=== PATIENT | female | born 1960 | race Two or more races ===

== ENCOUNTER 2016-11-19 15:52 | Emergency (ER) | payer SELFPAY ==
[~2016-11-19] VITALS: Ht 167.6 cm; Wt 97.5 kg
[2016-11-19] MEDS ORDERED: IBUPROFEN600 MG ORAL (17:39)
[2016-11-19 18:00] VITALS: BP 142/83
--- NOTE | 2016-11-19 18:50 | Emergency Room Report ---
History of Present Illness General Chief Complaint: Lower Extremity Injury Source: Patient (FRANNY GARCIA) Present Illness HPI The patient is a 56-year-old female presenting for left knee pain which began yesterday. She states that this began while she was standing for no known reason. She denies any fall or injury. She states that pain was an 8/10 dull ache to the back of the knee and is worse with movement. She denies any radiating pain. She denies any numbness or tingling. She has used Aleve at home which helps. She denies any other symptoms. She denies history of gout (FRANNY GARCIA) Allergies: Coded Allergies: ASPIRIN (Verified Allergy, Unknown, 11/19/16) Patient History Past Medical History: see triage record Pertinent Family History: none Reviewed Nursing Documentation: PMH: Agreed, PSxH: Agreed (FRANNY GARCIA) Nursing Documentation-PMH Past Medical History: No Stated History (FRANNY GARCIA) Review of Systems All Other Systems: negative except mentioned in HPI ([email or web address]) Physical Exam Vital Signs Date Time Temp Pulse Resp B/P (MAP) Pulse Ox O2 Delivery O2 Flow Rate FiO2 11/19/16 16:00 97.9 86 20 144/88 96 Room Air Sp02 EP Interpretation: reviewed, normal General Appearance: no apparent distress, alert, GCS 15, non-toxic Head: normocephalic, atraumatic Eyes: bilateral eye normal inspection, bilateral eye PERRL ENT: hearing grossly normal, normal pharynx, no angioedema, normal voice Musculoskeletal: normal inspection, back normal, normal range of motion, no calf tenderness, other - antalgic gait Neurologic: alert, oriented x3, responsive, motor strength/tone normal, sensory intact, speech normal Psychiatric: judgement/insight normal, memory normal, mood/affect normal, no suicidal/homicidal ideation Skin: normal color, no rash, warm/dry, well hydrated ([email or web address]) Procedures Splinting Splinting : Consent: Verbal Location: L knee Pre-Made Type: knee immobilizer Pre-Proc Neuro Vasc Exam: normal Post-Proc Neuro Vasc Exam: normal Patient Tolerated: Well Complications: None (FRANNY GARCIA) Medical Decision Making PA Attestation Dr. Farr is my supervising physician. Patient management was discussed with my supervising physician (FRANNY GARCIA) Diagnostic Impression: Primary Impression: Left knee sprain Qualified Codes: S83.92XA - Sprain of unspecified site of left knee, initial encounter ER Course The patient is a 56-year-old female presenting for left knee pain Ddx considered include but not limited to sprain/strain, fracture, contusion, gout, cyst, among others PE: NAD Musculoskeletal: There is no obvious deformity. Left knee is nontender. No edema. No ecchymosis. Patient walks with antalgic gait favoring the right leg. X-ray is unremarkable A knee immobilizer is placed as a precaution. She will follow up with her primary doctor. She was informed she may need MRI if pain continues or worsens. She is given rice information and a prescription for Motrin. ER precautions given (FRANNY GARCIA) Other X-Ray Diagnostic Results Other X-Ray Diagnostic Results : X-Ray ordered: L knee # of Views/Limited Vs Complete: 3 View Indication: Pain EP Interpretation: Yes Interpretation: no dislocation, no soft tissue swelling, no fractures Impression: No acute disease Electronically Signed by: DESTINY Madera Scribsue Text I have reviewed the xray with my supervising physician and interpretation is that there are no fractures, dislocations or soft tissue swelling. (FRANNY GARCIA) Other X-Ray Diagnostic Results : Electronically Signed by: Damian documentation reviewed by me and is accurate, Enrique Farr MD. (Enrique Farr M.D.) Last Vital Signs Date Time Temp Pulse Resp B/P (MAP) Pulse Ox O2 Delivery O2 Flow Rate FiO2 11/19/16 18:00 97.9 78 20 142/83 96 Room Air Status: improved (FRANNY GARCIA) Disposition: HOME, SELF-CARE Condition: Improved Scripts Ibuprofen* (MOTRIN*) 600 Mg Tablet 600 MG ORAL Q8H Y for For Pain, #30 TAB 0 Refills Prov: FRANNY GARCIA 11/19/16 Referrals: NOT CHOSEN [facility]/,REFERRING (PCP) Patient Instructions: Knee Immobilizer, Knee Sprain Additional Instructions: I discussed my findings with the patient. All questions and concerns have been answered. Treatment and medication compliance have been addressed. I advised the patient that they need to follow up with PMD in 3-5 days. Return to ED if pain remains or worsens, numbness or tingling occurs, new rash is noticed, fever is noticed, or if needed for any reason. Patient verbalized understanding of discharge instructions. The patient was informed she will most likely need MRI for further evaluation FRANNY GARCIA Nov 19, 2016 18:50 Enrique Farr M.D. Nov 20, 2016 05:18
--- NOTE | 2016-11-20 12:27 | Diagnostic Imaging Report ---
Indication: Pain 3 views of the left knee were obtained. Findings: No acute fracture, malalignment, or joint effusion are identified. Joint space is relatively well-maintained. Impression: Negative for acute injury
== END 2016-11-19 18:11 | disposition home or self-care (01) ==
LOC: EMR 17:45
DX: S83.92XA Sprain of unspecified site of left knee, initial encounter (principal); X58.XXXA Exposure to other specified factors, initial encounter; Y92.89 Other specified places as the place of occurrence of the external cause; Z88.6 Allergy status to analgesic agent
CPT/HCPCS: 99283